=== PATIENT | female | born 1995 ===

== ENCOUNTER → 2017-11-13 | Outpatient (CLI) | payer BC | LOC: BMCIMAGING 11:29 | PROVIDERS: ATTEND Obstetrics & Gynecology | DX: N63.10 Unspecified lump in the right breast, unspecified quadrant (principal) ==

== ENCOUNTER → 2018-04-20 | Outpatient (CLI) | payer BC | LOC: BMCIMAGING 11:29 | PROVIDERS: ATTEND Obstetrics & Gynecology | DX: N63.12 Unspecified lump in the right breast, upper inner quadrant (principal) ==